=== PATIENT | female | born 1995 | race Caucasian/White ===

== ENCOUNTER 2017-06-01 13:52 | Emergency (ER) | payer OTHER ==
[2017-06-01 14:03] VITALS: BP 115/54; PULSE 81; TEMP 98.2; BMI 29.7
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
[2017-06-01] MEDS ORDERED: IBUPROFEN 600 MG TABLET (FP) PO ONE ×2 (16:18→16:21)
== END 2017-06-01 16:24 | disposition home or self-care (01) ==
LOC: JERFT 13:52
DX: S16.1XXA Strain of muscle, fascia and tendon at neck level, initial encounter (principal); V49.59XA Passenger injured in collision with other motor vehicles in traffic accident, initial encounter; Y92.488 Other paved roadways as the place of occurrence of the external cause; Y93.89 Activity, other specified; Y99.8 Other external cause status
CPT/HCPCS: 70450-TC; 72125-TC; 84703; 99281-25